=== PATIENT | male | born 1960 | race Two or more races ===

== ENCOUNTER 2016-10-03 09:33 | Day surgery (SDC) | payer OTHER ==
[~2016-10-03 09:33] MED LIST: FENTANYL 250 MCG/5 ML AMP IV PRN; LACTATED RINGERS 1,000 ML IV SCH; MIDAZOLAM HCL 5 MG/5 ML VIAL IV PRN
[2016-10-03] MEDS ORDERED: LACTATED RINGERS 1,000 ML ONE (09:35)
[2016-10-03] MEDS ORDERED: IV START KIT ONE (09:35)
[2016-10-03] MEDS ORDERED: MIDAZOLAM HCL 5 MG/5 ML VIAL ONE (10:07)
[2016-10-03] MEDS ORDERED: FENTANYL 5 ML ONE (10:07)
== END 2016-10-03 12:00 | disposition home or self-care (01) ==
LOC: SDC 09:33
PROVIDERS: ATTEND Internal Medicine Gastroenterology
PROC: 0DJD8ZZ Inspection of Lower Intestinal Tract, Via Natural or Artificial Opening Endoscopic (ICD-10-PCS; principal; 2016-10-03)
DX: Z12.11 Encounter for screening for malignant neoplasm of colon (principal); K57.30 Diverticulosis of large intestine without perforation or abscess without bleeding; I10 Essential (primary) hypertension; F17.200 Nicotine dependence, unspecified, uncomplicated

== ENCOUNTER 2016-10-18 13:20 | Emergency (ER) | payer OTHER ==
[2016-10-18] MEDS ORDERED: MORPHINE SULFATE 4 MG/ML SYRINGE ONE (14:31)
[2016-10-18] MEDS ORDERED: MORPHINE SULFATE 2 MG/ML SYRINGE ONE (14:31)
[2016-10-18] MEDS ORDERED: ONDANSETRON 4 MG/2ML 2 ML VIAL ONE (14:31)
[2016-10-18] MEDS ORDERED: SODIUM CHLORIDE 0.9% 1,000 ML ONE (14:31)
--- NOTE | 2016-10-18 14:46 | US ---
Exam: Scrotum and contents ultrasound COMPARISON: CT abdomen and pelvis 11/11/2015 INDICATION: Left groin pain for one day. FINDINGS: Ultrasound evaluation of the scrotum and its contents was obtained. Right testicle measures 4.0 x 1.9 x 3.0 cm and left testicle measures 3.9 x 1.9 x 3.0 cm. Both testicles are homogeneous in echotexture, and no intratesticular mass is identified. Blood flow is present within both testicles and appears symmetric. The left epididymis is enlarged and hypervascular compared with the right. Small bilateral hydroceles are seen bilaterally. IMPRESSION: Left-sided epididymitis. No evidence of orchitis or torsion. Report was uploaded to the EMR at 1440 hours 10/18/2016.
[2016-10-18] MEDS ORDERED: AZITHROMYCIN 250 MG TABLET ONE (15:16)
[2016-10-18] MEDS ORDERED: CEFTRIAXONE SODIUM 1 G VIAL ONE (15:16)
[2016-10-18 15:36] LABS: URINE BILIRUBIN NEGATIVE (NEGATIVE); URINE BLOOD 1+ (NEGATIVE); URINE GLUCOSE (UA) NEGATIVE (NEGATIVE); URINE LEUKOCYTE ESTERASE 2+ (NEGATIVE); URINE NITRITE POSITIVE (NEGATIVE); URINE PROTEIN 1+ (NEGATIVE); URINE UROBILINOGEN 1 mg/dL (0-1 mg/dl)
[2016-10-18 15:37] LABS: ABSOLUTE NEUTROPHIL COUNT 3.6 K/mm3 (1.8-7.7); BASO % 0.6 % (0.2-1.0); EOS # 0.1 (0.0-0.5); EOS % 1.4 % (0.9-2.9); HEMATOCRIT 39.6 % (32.0-52.0); HEMOGLOBIN 13.2 gm/l (14.0-18.0); IMM NEUT% 0.1 % (0-1); LYMPH # 2.4 (1.0-4.8); LYMPH % 33.9 % (15-45); MEAN CELL VOLUME 95.4 fl (80.0-94.0); MEAN CORPUSCULAR HEMOGLOBIN 31.8 pg (27.0-31.0); MEAN CORPUSCULAR HGB CONC 33.3 g/dl (33.0-37.0); MEAN PLATELET VOLUME 9.2 fl (7.4-10.4); MONO # 0.9 (0.0-0.8); MONO % 13.2 % (4-12); NEUT % 50.8 % (43-75); PLATELET COUNT 274 K/mm3 (130-400); RED CELL DISTRIBUTION WIDTH 12.6 % (11.5-14.5)
[2016-10-18 15:41] LABS: URINE APPEARANCE SL CLOUDY; URINE COLOR DARK YELLOW
[2016-10-18 15:43] LABS: URINE RBC 0 /hpf; URINE WBC >50 /hpf
[2016-10-18 15:44] LABS: URINE BACTERIA 4+
[2016-10-18 15:47] LABS: ALBUMIN 3.7 gm/dL (3.5-5.7); CALCIUM 9.3 mg/dL (8.6-10.3)
[2016-10-19 14:22] LABS: CHLAMYDIA BD Negative (Negative); N.GONORRHOEAE BD Negative (Negative); SOURCE Urine (())
== END 2016-10-18 17:08 | disposition home or self-care (01) ==
LOC: ED 13:20
DX: N45.1 Epididymitis (principal)
CPT/HCPCS: 87491; 87591; 85025; 87086; 80053; 87186; 81001; 76870; 96375; 99284; 96372; 96374; 99283; J2270 ×2; J0696; J2405; A9270; J7030